=== PATIENT | male | born 1990 | race Caucasian/White ===

== ENCOUNTER 2016-10-19 19:41 | Emergency (ER) | payer OTHER ==
[2016-10-19 19:49] VITALS: BP 152/111; TEMP 98.7; BMI 30.4
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
== END 2016-10-19 20:45 | disposition home or self-care (01) ==
LOC: ED 19:41
DX: S43.402A Unspecified sprain of left shoulder joint, initial encounter (principal); V89.2XXA Person injured in unspecified motor-vehicle accident, traffic, initial encounter
CPT/HCPCS: 99282

== ENCOUNTER 2017-03-06 13:23 | Outpatient (CLI) | END 2017-03-06 13:24 | disposition home or self-care (01) | LOC: LAB 13:23 | PROVIDERS: ATTEND Emergency Medicine | DX: I10 Essential (primary) hypertension (principal); R53.1 Weakness; Z00.00 Encounter for general adult medical examination without abnormal findings | CPT/HCPCS: 36415; 80053; 84403; 84443; 85025 ==

== ENCOUNTER 2017-04-22 15:46 | Outpatient (CLI) | END 2017-04-22 15:47 | disposition home or self-care (01) | LOC: RHC-LAB 15:46 | PROVIDERS: ATTEND Emergency Medicine | DX: R53.1 Weakness (principal); R79.89 Other specified abnormal findings of blood chemistry | CPT/HCPCS: 36415; 84403 ==

== ENCOUNTER 2017-05-15 02:32 | Outpatient (CLI) | END 2017-05-15 02:33 | disposition home or self-care (01) | LOC: LAB 02:32 | PROVIDERS: ATTEND Physician Assistant Medical | DX: E29.1 Testicular hypofunction (principal) | CPT/HCPCS: 36415 ==

== ENCOUNTER 2017-05-22 02:33 | Outpatient (CLI) | END 2017-05-22 02:34 | disposition home or self-care (01) | LOC: RAD 02:33 | PROVIDERS: ATTEND Physician Assistant Medical | DX: E29.1 Testicular hypofunction (principal) | CPT/HCPCS: 36415; 84403 ==

== ENCOUNTER 2017-05-26 06:01 | Outpatient (CLI) | END 2017-05-26 06:02 | disposition home or self-care (01) | LOC: LAB 06:01 | PROVIDERS: ATTEND Emergency Medicine | DX: E29.1 Testicular hypofunction (principal) | CPT/HCPCS: 36415; 84403 ==

== ENCOUNTER 2017-06-26 09:14 | Outpatient (POV) | END 2017-06-26 17:00 | LOC: OUTPT 09:14 | PROVIDERS: ATTEND Otolaryngology | DX: H93.13 Tinnitus, bilateral (principal) ==